=== PATIENT | male | born 1980 | race Caucasian/White ===

== ENCOUNTER 2016-06-16 22:00 | Emergency (ER) | payer SELFPAY ==
[2016-06-16 22:05] VITALS: RESP 18
--- NOTE | 2016-06-16 22:41 | ED ---
General Adult HPI - General Chief complaint: Psychiatric Symptoms Stated complaint: Mental Health Time Seen by Provider: 06/16/16 22:25 Source: patient, RN notes reviewed Mode of arrival: ambulatory Limitations: no limitations - History of Present Illness Initial comments: Patient is a 36-year-old male who presents emergency room today with a chief complaint of having manic episodes. Patient does admit to history of bipolar. Patient states is not on any medications currently. States she's been off meds for the past 2 years. Since been doing well the last few months. States been having extreme highs and extremely close. Patient states that yesterday he was having thoughts of going downtown to grab opium to try to overdose. The patient states he has not been thinking clearly. Patient states there is no tonsillar therapist that he currently follows up with as he does not have any insurance. He denies any specific suicidal plans. Denies any other complaints or symptoms currently. Patient denies any recent fever, chills, shortness of breath, chest pain, back pain, abdominal pain, nausea or vomiting, numbness or tingling, dysuria or hematuria, constipation or diarrhea, headaches or visual changes, or any other complaints. - Related Data Home Medications Medication Instructions Recorded Confirmed Glucosamine Sulfate 500 mg PO HS 11/23/15 04/29/16 Allergies Allergy/AdvReac Type Severity Reaction Status Date / Time Milk Containing Products AdvReac Abdominal Verified 06/16/16 22:05 Pain Review of Systems ROS Statement: Those systems with pertinent positive or pertinent negative responses have been documented in the HPI. ROS Other: All systems not noted in ROS Statement are negative. Past Medical History Past Medical History: Musculoskeletal Disorder Additional Past Medical History / Comment(s): Degenerative disc disease of the cervical spine. History of Any Multi-Drug Resistant Organisms: None Reported Past Surgical History: No Surgical Hx Reported Additional Past Surgical History / Comment(s): colonoscopy Past Anesthesia/Blood Transfusion Reactions: No Reported Reaction Past Psychological History: ADD/ADHD, Anxiety, Bipolar, Depression, Panic Disorder Smoking Status: Current every day smoker Past Alcohol Use History: Occasional Additional Past Alcohol Use History / Comment(s): Drinks occasionally two days ago he drank one fifth and a six pack. He smokes one and half packs per day since he was 16 years of age. He has a history of alcoholism and has been sober for 40 days. He has also been clean from cocaine and heroin for the past 40 days. Past Drug Use History: Marijuana, Opiates, Prescription Drug Abuse Additional Drug Use History / Comment(s): Use to be addicted to opiates, last use was a year and a half ago. Smokes M.J. twice a month. - Past Family History Father Family Medical History: No Reported History Additional Family Medical History / Comment(s): Healthy at age 60 Mother Family Medical History: Thyroid Disorder Additional Family Medical History / Comment(s): History of depression. Mom is 52 years of age. Sister(s) Family Medical History: No Reported History Additional Family Medical History / Comment(s): One sister that is healthy. Patient has no brothers. He does have 3 children, 2 girls and one boy. General Exam - General Exam Comments Initial Comments: General: The patient is awake and alert, in no distress, and does not appear acutely ill. Eye: Pupils are equal, round and reactive to light, extra-ocular movements are intact. No nystagmus. There is normal conjunctiva bilaterally. No signs of icterus. Ears, nose, mouth and throat: There are moist mucous membranes and no oral lesions. Neck: The neck is supple, there is no tenderness or JVD. Cardiovascular: There is a regular rate and rhythm. No murmur, rub or gallop is appreciated. Respiratory: Lungs are clear to auscultation, respirations are non-labored, breath sounds are equal. No wheezes, stridor, rales, or rhonchi. Musculoskeletal: Normal ROM, no tenderness. Strength 5/5. Sensation intact. Pulses equal bilaterally 2+. Neurological: A&O x 3. CN II-XII intact, There are no obvious motor or sensory deficits. Coordination appears grossly intact. Speech is normal. Skin: Skin is warm and dry and no rashes or lesions are noted. Psychiatric: Cooperative, appropriate mood & affect, normal judgment. Limitations: no limitations Course Vital Signs 06/16/16 22:01 Temperature 98.4 F Pulse Rate 112 H Respiratory 18 Rate Blood Pressure 185/97 O2 Sat by Pulse 99 Oximetry Medical Decision Making - Medical Decision Making Patient was seen here in the emergency room by [facility]. The recommendation patient can be discharged and follow up outpatient. Patient is aware this plan states understanding and is in agreement. He is advised that he may return here to the emergency room for any increase or worsen symptoms or any other concerns. Disposition Clinical Impression: Bipolar disorder Disposition: HOME SELF-CARE Condition: Good Instructions: Bipolar Disorder (ED) Additional Instructions: Please follow-up with the mental health as discussed in the emergency room. Please return to emergency room if any symptoms increase or worsen appropriate concerns. Referrals: None,Stated [Primary Care Provider] - 1-2 days Time of Disposition: 00:22
[2016-06-17 00:27] VITALS: BP 149/87; PULSE 78; TEMP 97.7
== END 2016-06-17 00:30 | disposition home or self-care (01) ==
LOC: EC 22:00
DX: F31.9 Bipolar disorder, unspecified (principal); F17.200 Nicotine dependence, unspecified, uncomplicated; Z91.011 Allergy to milk products; Z79.899 Other long term (current) drug therapy
CPT/HCPCS: 82075; 99284

== ENCOUNTER 2016-10-15 05:02 | Emergency (ER) | payer OTHER ==
--- NOTE | 2016-10-15 05:59 | ED ---
General Adult HPI - General Chief complaint: Overdose Stated complaint: Drug Overdose Time Seen by Provider: 10/15/16 05:29 Source: patient, police, EMS Mode of arrival: EMS Limitations: no limitations - Related Data Home Medications Medication Instructions Recorded Confirmed Glucosamine Sulfate 500 mg PO HS 11/23/15 04/29/16 Allergies Allergy/AdvReac Type Severity Reaction Status Date / Time Milk Containing Products AdvReac Abdominal Verified 06/16/16 22:05 Pain Review of Systems ROS Statement: Those systems with pertinent positive or pertinent negative responses have been documented in the HPI. ROS Other: All systems not noted in ROS Statement are negative. Past Medical History Past Medical History: Musculoskeletal Disorder Additional Past Medical History / Comment(s): Degenerative disc disease of the cervical spine. History of Any Multi-Drug Resistant Organisms: None Reported Past Surgical History: No Surgical Hx Reported Additional Past Surgical History / Comment(s): colonoscopy Past Anesthesia/Blood Transfusion Reactions: No Reported Reaction Past Psychological History: ADD/ADHD, Anxiety, Bipolar, Depression, Panic Disorder Smoking Status: Current every day smoker Past Alcohol Use History: Occasional Additional Past Alcohol Use History / Comment(s): Drinks occasionally two days ago he drank one fifth and a six pack. He smokes one and half packs per day since he was 16 years of age. He has a history of alcoholism and has been sober for 40 days. He has also been clean from cocaine and heroin for the past 40 days. Past Drug Use History: Marijuana, Opiates, Prescription Drug Abuse Additional Drug Use History / Comment(s): Use to be addicted to opiates, last use was a year and a half ago. Smokes M.J. twice a month. - Past Family History Father Family Medical History: No Reported History Additional Family Medical History / Comment(s): Healthy at age 60 Mother Family Medical History: Thyroid Disorder Additional Family Medical History / Comment(s): History of depression. Mom is 52 years of age. Sister(s) Family Medical History: No Reported History Additional Family Medical History / Comment(s): One sister that is healthy. Patient has no brothers. He does have 3 children, 2 girls and one boy. General Exam Limitations: no limitations Course Vital Signs 10/15/16 05:10 Temperature 97.0 F L Pulse Rate 116 H Respiratory 16 Rate Blood Pressure 156/100 O2 Sat by Pulse 97 Oximetry Medical Decision Making - Lab Data Lab Results 10/15/16 Range/Units 05:33 Urine Opiates Screen Not Detected (NotDetected) Ur Oxycodone Screen Not Detected (NotDetected) Urine Methadone Screen Not Detected (NotDetected) Ur Propoxyphene Screen Not Detected (NotDetected) Ur Barbiturates Screen Not Detected (NotDetected) U Tricyclic Antidepress Not Detected (NotDetected) Ur Phencyclidine Scrn Not Detected (NotDetected) Ur Amphetamines Screen Not Detected (NotDetected) U Methamphetamines Scrn Not Detected (NotDetected) U Benzodiazepines Scrn Not Detected (NotDetected) Urine Cocaine Screen Not Detected (NotDetected) U Marijuana (THC) Screen Detected H (NotDetected) Disposition Clinical Impression: Overdose Disposition: OTHER INSTITUTION NOT DEFINED Condition: Good Instructions: Adult Overdose (ED) Referrals: None,Stated [Primary Care Provider] - 1-2 days - Out of Hospital Transfer - Req. Specs Out of Hospital Transfer - Requested Specifics: Other Non-Acute (Police custody)
[2016-10-15 06:05] VITALS: BP 149/98; PULSE 96; RESP 18; TEMP 97.1
== END 2016-10-15 06:04 | disposition home or self-care (01) ==
LOC: EC 05:02
DX: T50.901A Poisoning by unspecified drugs, medicaments and biological substances, accidental (unintentional), initial encounter (principal); F17.200 Nicotine dependence, unspecified, uncomplicated; Z79.899 Other long term (current) drug therapy; Z91.011 Allergy to milk products
CPT/HCPCS: 80306; 99284

== ENCOUNTER 2017-08-27 17:13 | Emergency (ER) | payer OTHER ==
[2017-08-27 18:09] VITALS: BP 149/92; PULSE 86; RESP 18; TEMP 98.4
--- NOTE | 2017-08-27 18:28 | ED ---
General Adult HPI - General Chief complaint: Extremity Injury, Upper Stated complaint: LEFT ELBOW INJURY Time Seen by Provider: 08/27/17 18:15 Source: patient, RN notes reviewed Mode of arrival: ambulatory Limitations: no limitations - History of Present Illness Initial comments: Patient 37-year-old male presenting to the emergency room today with a chief complaint of left-sided elbow pain. He states it's been volume this past week. He does admit to a job where he is using his hands and his arms. He states been feeling at work. He specifically describes with extension and flexion at the wrist causing pain. Patient denies any specific injury or trauma to the area. States it been trying some ibuprofen with some relief the symptoms. He denies any other complaints or symptoms at this time. Patient denies any recent fever, chills, shortness of breath, chest pain, back pain, abdominal pain, nausea or vomiting, or any other complaints. - Related Data Home Medications Medication Instructions Recorded Confirmed Glucosamine Sulfate 500 mg PO HS 11/23/15 04/29/16 Previous Rx's Medication Instructions Recorded Ibuprofen [Motrin] 600 mg PO Q6HR PRN #40 day 08/27/17 Allergies Allergy/AdvReac Type Severity Reaction Status Date / Time Milk Containing Products AdvReac Abdominal Verified 06/16/16 22:05 Pain Review of Systems ROS Statement: Those systems with pertinent positive or pertinent negative responses have been documented in the HPI. ROS Other: All systems not noted in ROS Statement are negative. Past Medical History Past Medical History: Musculoskeletal Disorder Additional Past Medical History / Comment(s): Degenerative disc disease of the cervical spine. History of Any Multi-Drug Resistant Organisms: None Reported Past Surgical History: No Surgical Hx Reported Additional Past Surgical History / Comment(s): colonoscopy Past Anesthesia/Blood Transfusion Reactions: No Reported Reaction Past Psychological History: ADD/ADHD, Anxiety, Bipolar, Depression, Panic Disorder Smoking Status: Current every day smoker Past Alcohol Use History: Occasional Past Drug Use History: None Reported, Marijuana, Opiates, Prescription Drug Abuse - Past Family History Father Family Medical History: No Reported History Additional Family Medical History / Comment(s): Healthy at age 60 Mother Family Medical History: Thyroid Disorder Additional Family Medical History / Comment(s): History of depression. Mom is 52 years of age. Sister(s) Family Medical History: No Reported History Additional Family Medical History / Comment(s): One sister that is healthy. Patient has no brothers. He does have 3 children, 2 girls and one boy. General Exam - General Exam Comments Initial Comments: General: The patient is awake and alert, in no distress, and does not appear acutely ill. Neck: The neck is supple, there is no tenderness or JVD. Musculoskeletal: Patient has normal appearance of the left elbow no swelling no deformity. Does have tenderness with extension at the left wrist and palpation over the prospect of left elbow. Patient's findings are consistent with a tendinitis. Pulses are equal bilaterally 2+. Strength is 5/5. Neurological: A&O x 3. CN II-XII intact, There are no obvious motor or sensory deficits. Coordination appears grossly intact. Speech is normal. Skin: Skin is warm and dry and no rashes or lesions are noted. Psychiatric: Normal mood and affect. Limitations: no limitations Course Vital Signs 08/27/17 18:06 Temperature 98.4 F Pulse Rate 86 Respiratory 18 Rate Blood Pressure 149/92 O2 Sat by Pulse 98 Oximetry Medical Decision Making - Medical Decision Making Patient's physical exam findings consistent with tendinitis. Is advised to use anti-inflammatories. Advised to use ice. Advised that there is a small brace that he may purchase to see if it helps changed. Room to improve his symptoms. He is advised that rest will be needed. Patient advised to follow-up with orthopedics symptoms or improving. Disposition Clinical Impression: Tennis elbow Disposition: HOME SELF-CARE Condition: Good Instructions: Tennis Elbow (ED) Additional Instructions: Please try to rest. As discussed. Please use ice to the affected area 4 times a day for 20 minutes at a time. Please continue ibuprofen for pain. Please try brace as discussed. Her symptoms are not improving please follow-up with orthopedics. Prescriptions: Ibuprofen [Motrin] 600 mg PO Q6HR PRN #40 day PRN Reason: Pain Referrals: None,Stated [Primary Care Provider] - 1-2 days Jerry Ascencio MD [STAFF PHYSICIAN] - 1-2 days Time of Disposition: 18:28
== END 2017-08-27 18:47 | disposition home or self-care (01) ==
LOC: EC 17:13
DX: M77.12 Lateral epicondylitis, left elbow (principal); M79.9 Soft tissue disorder, unspecified; F17.200 Nicotine dependence, unspecified, uncomplicated; Z79.899 Other long term (current) drug therapy; Z91.011 Allergy to milk products
CPT/HCPCS: 99283

== ENCOUNTER 2019-07-13 14:45 | Emergency (ER) | payer OTHER ==
[2019-07-13 14:51] LABS: Glucose,Whole Blood 114 mg/dL (75-99)
[2019-07-13] MEDS ORDERED: HYDROmorphone 1 MG/ML 1 ML SYRINGE ONE (14:54)
[2019-07-13] MEDS ORDERED: KETOROLAC 60 MG/2 ML VIAL IVP STA (14:54)
[2019-07-13] MEDS ORDERED: HYDROmorphone 1 MG/ML 1 ML SYRINGE IVP STA ×3 (14:54→16:24)
[2019-07-13] MEDS ORDERED: SODIUM CHLORIDE 0.9% 1,000 ML IV ONE (14:55)
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
[2019-07-13] MEDS ORDERED: LORazepam 2 MG/ML INJ IV STA (15:14)
[2019-07-13] MEDS ORDERED: LORazepam 2 MG/ML INJ ONE (15:14)
[2019-07-13 16:45] VITALS: TEMP 98.2
[2019-07-13 17:18] VITALS: BP 131/85; PULSE 84; RESP 16
== END 2019-07-13 17:23 | disposition home or self-care (01) ==
LOC: EC 14:45
DX: T22.211A Burn of second degree of right forearm, initial encounter (principal); T23.211A Burn of second degree of right thumb (nail), initial encounter; T31.0 Burns involving less than 10% of body surface; F17.200 Nicotine dependence, unspecified, uncomplicated; Z91.011 Allergy to milk products; X02.0XXA Exposure to flames in controlled fire in building or structure, initial encounter; Y93.G3 Activity, cooking and baking; Y92.000 Kitchen of unspecified non-institutional (private) residence as the place of occurrence of the external cause
CPT/HCPCS: 36415; 99284; 16000; 96374; 96375 ×2; 96376; 96361; J2060; J1885; J1170

== ENCOUNTER 2023-05-22 06:27 | Emergency (ER) | payer OTHER ==
[2023-05-22 06:39] VITALS: TEMP 98.1
[2023-05-22] MEDS ORDERED: LORazepam 2 MG/ML INJ IV STA (07:13)
--- NOTE | 2023-05-22 07:17 | ED ---
General Adult HPI - General Chief complaint: Arrhythmia/Palpitations Stated complaint: Shaky Time Seen by Provider: 05/22/23 06:56 Source: patient, RN notes reviewed Mode of arrival: ambulatory Limitations: no limitations - History of Present Illness Initial comments: Patient is a pleasant 43-year-old male presenting to the emergency department with several complaints. Patient did wake up feeling a little bit lightheaded. Symptoms worsened after drinking a energy drink. Patient was driving to work and had palpitations and became shaky. Patient still feels this way. Patient questions if he had an anxiety attack. Patient does have history of similar symptoms previously. Patient also had some blurred vision. No headache. No chest pain or dyspnea. - Related Data Home Medications Medication Instructions Recorded Confirmed Multivitamin with Iron 1 tab PO DAILY 07/13/19 07/13/19 [Multivitamins with Iron] Previous Rx's Medication Instructions Recorded Ibuprofen [Motrin] 600 mg PO Q6HR PRN #40 day 08/27/17 Hydrocodone/Acetaminophen [[place] 1 each PO Q4HR PRN #14 tab 07/13/19 5-325] Ibuprofen [Motrin] 600 mg PO Q6HR PRN #20 tab 07/13/19 SILVER sulfADIAZINE Cream 1 applic TOPICAL BID #100 gram 07/13/19 [Silvadene 1% Cream] Allergies Allergy/AdvReac Type Severity Reaction Status Date / Time Milk Containing Products AdvReac Abdominal Verified 05/22/23 06:37 (Dairy) Pain [Milk Containing Products] Review of Systems ROS Statement: Those systems with pertinent positive or pertinent negative responses have been documented in the HPI. ROS Other: All systems not noted in ROS Statement are negative. Constitutional: Denies: fever Eyes: Reports: as per HPI. Denies: eye pain ENT: Denies: ear pain Respiratory: Denies: cough Cardiovascular: Reports: palpitations. Denies: chest pain Endocrine: Denies: fatigue Gastrointestinal: Denies: abdominal pain Psychiatric: Reports: anxiety Past Medical History Past Medical History: Musculoskeletal Disorder Additional Past Medical History / Comment(s): Degenerative disc disease of the cervical spine. History of Any Multi-Drug Resistant Organisms: None Reported Past Surgical History: No Surgical Hx Reported Additional Past Surgical History / Comment(s): colonoscopy Past Anesthesia/Blood Transfusion Reactions: No Reported Reaction Past Psychological History: ADD/ADHD, Anxiety, Bipolar, Depression, Panic Disorder Smoking Status: Vaper Past Alcohol Use History: Occasional Past Drug Use History: Marijuana, Opiates, Prescription Drug Abuse - Past Family History Father Family Medical History: No Reported History Additional Family Medical History / Comment(s): Healthy at age 60 Mother Family Medical History: Thyroid Disorder Additional Family Medical History / Comment(s): History of depression. Mom is 52 years of age. Sister(s) Family Medical History: No Reported History Additional Family Medical History / Comment(s): One sister that is healthy. Patient has no brothers. He does have 3 children, 2 girls and one boy. General Exam Limitations: no limitations General appearance: alert, in no apparent distress, anxious Head exam: Present: normocephalic Eye exam: Present: normal appearance, PERRL, EOMI ENT exam: Present: normal oropharynx Neck exam: Present: normal inspection Respiratory exam: Present: normal lung sounds bilaterally Cardiovascular Exam: Present: normal rhythm, tachycardia GI/Abdominal exam: Present: soft. Absent: tenderness Extremities exam: Present: normal inspection Neurological exam: Present: alert, CN II-XII intact. Absent: motor sensory deficit Expanded Speech: Present: fluid speech Cranial nerves: EOM's Intact: Normal Motor strength exam: RUE: 5, LUE: 5, RLE: 5, LLE: 5 Eye Response: (4) open spontaneously Motor Response: (6) obeys commands Verbal Response: (5) oriented Psychiatric exam: Present: normal affect, normal mood Skin exam: Present: normal color Course Vital Signs 05/22/23 05/22/23 05/22/23 06:33 08:01 08:14 Temperature 98.1 F Pulse Rate 111 H 80 Pulse Rate [ 80 Set Illustrator ] Respiratory 20 16 Rate Blood Pressure 165/79 146/91 O2 Sat by Pulse 99 98 Oximetry Medical Decision Making - Medical Decision Making Was pt. sent in by a medical professional or institution (, PA, BLACKING WHEEL TENDER, urgent care, hospital, or skilled nursing...) When possible be specific @ -No Did you speak to anyone other than the patient for history (EMS, parent, family, police, friend...)? What history was obtained from this source @ -No Did you review nursing and triage notes (agree or disagree)? Why? @ -I reviewed and agree with nursing and triage notes Were old charts reviewed (outside hosp., previous admission, EMS record, old EKG, old radiological studies, urgent care reports/EKG's, skilled nursing records)? Report findings @ -No old charts were reviewed Differential Diagnosis (chest pain, altered mental status, abdominal pain women, abdominal pain men, vaginal bleeding, weakness, fever, dyspnea, syncope, headache, dizziness, GI bleed, back pain, seizure, CVA, palpatations, mental health, musculoskeletal)? @ -Differential Palpitations Ventricular arrhythmias, atrial arrhythmias, myocardial infarction, anemia, thyrotoxicosis, electrolyte imbalance, hypokalemia, pulmonary embolism, pulmonary disease, drugs, alcohol, anxiety, stress.... This is not meant to be an all-inclusive list. EKG interpreted by me (3pts min.). @ -As above X-rays interpreted by me (1pt min.). @ -None done CT interpreted by me (1pt min.). @ -None done U/S interpreted by me (1pt. min.). @ -None done What testing was considered but not performed or refused? (CT, X-rays, U/S, labs)? Why? @ -None What meds were considered but not given or refused? Why? @ -None Did you discuss the management of the patient with other professionals (pr ofessionals i.e. , PA, BLACKING WHEEL TENDER, lab, RT, psych nurse, drug abuse social worker, clay temperer, teacher, transportation security officer, case hardener)? Give summary @ -No Was smoking cessation discussed for >3mins.? @ -No Was critical care preformed (if so, how long)? @ -No Were there social determinants of health that impacted care today? How? (Homelessness, low income, unemployed, alcoholism, drug addiction, transport ation, low edu. Level, literacy, decrease access to med. care, residential, rehab)? @ -No Was there de-escalation of care discussed even if they declined (Discuss DNR or withdrawal of care, Hospice)? DNR status @ -No What co-morbidities impacted this encounter? (DM, HTN, Smoking, COPD, CAD, Cancer, CVA, ARF, Chemo, Hep., AIDS, mental health diagnosis, sleep apnea, morbid obesity)? @ -None Was patient admitted / discharged? Hospital course, mention meds given and route, prescriptions, significant lab abnormalities, going to OR and other pertinent info. @ -Patient reevaluated and resting comfortably in bed. Patient is near symptom-free. Patient is updated on results. Patient is comfortable with discharge home and will be provided one Ativan to take with them. Undiagnosed new problem with uncertain prognosis? @ -No Drug Therapy requiring intensive monitoring for toxicity (Heparin, Nitro, Insulin, Cardizem)? @ -No Were any procedures done? @ -No Diagnosis/symptom? @ -Palpitations, anxiety Acute, or Chronic, or Acute on Chronic? @ -Acute, acute Uncomplicated (without systemic symptoms) or Complicated (systemic symptoms)? @ -default Side effects of treatment? @ -No Exacerbation, Progression, or Severe Exacerbation? @ -No Poses a threat to life or bodily function? How? (Chest pain, [place], [place], pneumonia, PE, COPD, DKA, ARF, appy, cholecystitis, CVA, Diverticulitis, Homicidal, Suicidal, threat to staff... and all critical care pts) @ -No - Lab Data Result diagrams: 05/22/23 08:01 05/22/23 08:01 Lab Results 05/22/23 05/22/23 05/22/23 Range/Units 08:01 08:01 08:01 WBC 5.8 (3.8-10.6) k/uL RBC 4.73 (4.30-5.90) m/uL Hgb 14.4 (13.0-17.5) gm/dL Hct 41.6 (39.0-53.0) % MCV 87.9 (80.0-100.0) fL MCH 30.5 (25.0-35.0) pg MCHC 34.6 (31.0-37.0) g/dL RDW 12.4 (11.5-15.5) % Plt Count 277 (150-450) k/uL MPV 8.1 Neutrophils % 64 % Lymphocytes % 21 % Monocytes % 8 % Eosinophils % 4 % Basophils % 0 % Neutrophils # 3.7 (1.3-7.7) k/uL Lymphocytes # 1.2 (1.0-4.8) k/uL Monocytes # 0.5 (0-1.0) k/uL Eosinophils # 0.3 (0-0.7) k/uL Basophils # 0.0 (0-0.2) k/uL Sodium 141 (137-145) mmol/L Potassium 3.7 (3.5-5.1) mmol/L Chloride 104 (98-107) mmol/L Carbon Dioxide 25 (22-30) mmol/L Anion Gap 12 mmol/L BUN 7 L (9-20) mg/dL Creatinine 0.71 (0.66-1.25) mg/dL Est GFR (CKD-EPI)AfAm >90 (>60 ml/min/1.73 sqM) Est GFR (CKD-EPI)NonAf >90 (>60 ml/min/1.73 sqM) Glucose 114 H (74-99) mg/dL Calcium 8.9 (8.4-10.2) mg/dL Magnesium 1.8 (1.6-2.3) mg/dL Total Bilirubin 0.5 (0.2-1.3) mg/dL AST 24 (17-59) U/L ALT 23 (4-49) U/L Alkaline Phosphatase 59 (38-126) U/L Total Protein 7.1 (6.3-8.2) g/dL Albumin 4.5 (3.5-5.0) g/dL Urine Color Colorless Urine Appearance Clear (Clear) Urine pH 6.0 (5.0-8.0) Ur Specific [place] 1.004 (1.001-1.035) Urine Protein Negative (Negative) Urine Glucose (UA) Negative (Negative) Urine Ketones Negative (Negative) Urine Blood Negative (Negative) Urine Nitrite Negative (Negative) Urine Bilirubin Negative (Negative) Urine Urobilinogen <2.0 (<2.0) mg/dL Ur Leukocyte Esterase Negative (Negative) Serum Alcohol <10 mg/dL Disposition Clinical Impression: Palpitations Disposition: HOME SELF-CARE Condition: Stable Instructions (If sedation given, give patient instructions): Heart Palpitations (ED) Additional Instructions: Please do follow-up to primary care physician in the next day or 2 for recheck. Return for weakness, visual changes, confusion, increased heart rate, worsening or changing symptoms or any other concerns. Is patient prescribed a controlled substance at d/c from ED?: No Referrals: Jose Juan Oneill MD [STAFF PHYSICIAN] - 1-2 days Time of Disposition: 08:56
[2023-05-22 08:12] VITALS: RESP 16
[2023-05-22 08:17] LABS: Basophils % (A) 0 %; Eosinophils # (A) 0.3 k/uL (0-0.7); Eosinophils % (A) 4 %; HCT 41.6 % (39.0-53.0); HGB 14.4 gm/dL (13.0-17.5); Lymphocytes # (A) 1.2 k/uL (1.0-4.8); Lymphocytes % (A) 21 %; MCH 30.5 pg (25.0-35.0); MCHC 34.6 g/dL (31.0-37.0); MCV 87.9 fL (80.0-100.0); Mean Platelet Volume 8.1; Monocytes # (A) 0.5 k/uL (0-1.0); Monocytes % (A) 8 %; Neutrophils # (A) 3.7 k/uL (1.3-7.7); Neutrophils % (A) 64 %; Platelet Count 277 k/uL (150-450); RBC 4.73 m/uL (4.30-5.90); RDW 12.4 % (11.5-15.5); WBC 5.8 k/uL (3.8-10.6)
[2023-05-22 08:23] LABS: ALT 23 U/L (4-49); AST 24 U/L (17-59); African American GFR (CKD) >90 (>60 ml/min/1.73 sqM); Albumin 4.5 g/dL (3.5-5.0); Alcohol <10 mg/dL; Alkaline Phosphatase 59 U/L (38-126); Anion Gap 12 mmol/L; Blood Urea Nitrogen 7 mg/dL (9-20); Calcium 8.9 mg/dL (8.4-10.2); Carbon Dioxide 25 mmol/L (22-30); Chloride 104 mmol/L (98-107); Glucose 114 mg/dL (74-99); Magnesium 1.8 mg/dL (1.6-2.3); Non-African American GFR(CKD) >90 (>60 ml/min/1.73 sqM); Potassium 3.7 mmol/L (3.5-5.1); Sodium 141 mmol/L (137-145); Total Bilirubin 0.5 mg/dL (0.2-1.3); Total Protein 7.1 g/dL (6.3-8.2)
[2023-05-22 08:30] LABS: Appearance,Urine Clear (Clear); Bilirubin,Urine Negative (Negative); Blood,Urine Negative (Negative); Color,Urine Colorless; Glucose,Urine (UA) Negative (Negative); Ketones,Urine Negative (Negative); Leukocyte Esterase,Urine Negative (Negative); Nitrite,Urine Negative (Negative); Protein,Urine Negative (Negative); Specific Gravity,Urine 1.004 (1.001-1.035); Urobilinogen,Urine <2.0 mg/dL (<2.0)
[2023-05-22 08:56] LABS: Amphetamine Screen,Urine Not Detected (NotDetected); Barbiturate Screen,Urine Not Detected (NotDetected); Benzodiazepines Screen,Urine Not Detected (NotDetected); Cocaine Screen,Urine Not Detected (NotDetected); Methadone Screen, Urine Not Detected (NotDetected); Opiate Screen,Urine Not Detected (NotDetected); Oxycodone Screen, Urine Not Detected (NotDetected); Phencyclidine Screen,Urine Not Detected (NotDetected); Tricyclic Antidepressant,Urine Not Detected (NotDetected); Urn Cannabinoid Scrn Detected (NotDetected)
[2023-05-22] MEDS: LORazepam 1 MG TAB PO STA (09:07)
[2023-05-22 09:26] VITALS: BP 140/60; PULSE 68
== END 2023-05-22 09:10 | disposition home or self-care (01) ==
LOC: EC 06:27
DX: R00.2 Palpitations (principal); Z86.59 Personal history of other mental and behavioral disorders; F17.290 Nicotine dependence, other tobacco product, uncomplicated; F12.90 Cannabis use, unspecified, uncomplicated; Z20.822 Contact with and (suspected) exposure to COVID-19; Z91.011 Allergy to milk products
CPT/HCPCS: 36415; 80053; 83735; 85025; 81003; 80306; 99285; 96374; G0480; J2060; 80320